=== PATIENT | female | born 1950 | race Asian ===

== ENCOUNTER 2016-03-13 09:14 | Emergency (ER) | payer OTHER, BC ==
[2016-03-13 09:20] VITALS: RESP 18; TEMP 97.5; O2SAT 95
--- NOTE | 2016-03-13 09:28 | CPEKG ---
Heart Rate: 60 RR Interval: 1000 P-R Interval: 176 QRSD Interval: 94 QT Interval: 428 QTC Interval: 428 P Orange: 61 QRS Orange: -2 T Wave Orange: -36 EKG Severity - ABNORMAL ECG - EKG Impression: SINUS RHYTHM Electronically Signed By: Mikie Álvarez 13-Mar-2016 14:54:06
--- NOTE | 2016-03-13 09:44 | EDPHY ---
H & P Stated Complaint: 4 days sob chest tightness/htn Time Seen by Provider: 03/13/16 09:23 HPI/ROS: CHIEF COMPLAINT: Intermittent chest pain and dyspnea HISTORY OF PRESENT ILLNESS: The patient presents to the emergency department with a 4 day history of intermittent chest pain and dyspnea. The patient is also complaining of associated carpal spasms in her hands, the patient reports a sensation that she cannot get a deep breath. The patient reportedly has been having hot flashing and sweating. Patient has a vague headache. The patient denies any fever, cough or congestion. The patient denies focal numbness or weakness. The patient does report some increasing stress secondary to her current work burden. The patient was seen in the emergency department approximately 3 years ago with similar symptoms. The patient does have a history of a negative stress echocardiogram within the past 4 years. The patient has no risk factors for coronary artery disease. The patient does also complain of some mild left eye pain. She reportedly is scheduled to undergo cataract surgery in the near future. REVIEW OF SYSTEMS: A comprehensive 10 point review of systems is otherwise negative aside from elements mentioned in the history of present illness. Source: Patient Exam Limitations: No limitations - Personal History Current Tetanus/Diphtheria Vaccine: Unsure - Medical/Surgical History Hx Asthma: No Hx Chronic Respiratory Disease: No Hx Diabetes: No Hx Cardiac Disease: Yes Hx Renal Disease: No Hx Cirrhosis: No Hx Alcoholism: No Hx HIV/AIDS: No Hx Splenectomy or Spleen Trauma: No Other PMH: MEDICAL- HTN, HLD, HYPOTHYROID, MIGRAINES, MITRAL VALVE PROLAPSE, SCOLIOSIS. SURGICAL- TMJ, TUBAL LIGATION - Social History Smoking Status: Former smoker - Physical Exam Exam: General Appearance: Alert, no distress Eyes: Pupils equal and round no pallor or injection ENT, Mouth: Mucous membranes moist Respiratory: There are no retractions, lungs are clear to auscultation Cardiovascular: Regular rate and rhythm Gastrointestinal: Abdomen is soft and nontender, no masses, bowel sounds normal Neurological: A&O, normal motor function, normal sensory exam, normal cranial nerves Skin: Warm and dry, no rashes Musculoskeletal: Neck is supple nontender Extremities: symmetrical, full range of motion Constitutional: Initial Vital Signs Temperature (C) 36.4 C 03/13/16 09:18 Heart Rate 66 03/13/16 09:18 Respiratory Rate 18 03/13/16 09:18 Blood Pressure 191/105 H 03/13/16 09:18 O2 Sat (%) 95 03/13/16 09:18 O2 Delivery Mode Room Air Allergies/Adverse Reactions: iodine Allergy (Verified 03/13/16 09:15) Home Medications: Medication Instructions Recorded Losartan Potassium 07/02/13 Medical Decision Making - Diagnostics Imaging: EKG: Complete interpretation has been separately recorded in the [employer] archive. Summary impression: Sinus rhythm, nonspecific T-wave changes unchanged from prior EKG in 2013. ED Course/Re-evaluation: The patient presents to the ED with a multitude of complaints. Regarding her left eye pain, intra-ocular eye pressures were measured to be 12. The patient is well-appearing. She is in no acute distress. The patient's EKG demonstrates no evidence of ischemia. Her TSH and troponin are normal. The patient has no risk factors for coronary artery disease. I do feel the patient's symptoms of dyspnea and palpitations carpal spasm are related to likely increasing stress at work. The patient can continue to follow up with her primary care provider for evaluation of the symptoms. I have referred the patient to our on-call room cleaner for further evaluation of her chronic cataracts. There is no evidence of an acute angle closure glaucoma in the ED. Differential Diagnosis: Differential diagnosis considered includes acute angle closure glaucoma, arrhythmia, anxiety, metabolic abnormality, thyrotoxicosis - Data Points Laboratory Results: Laboratory Results 03/13/16 09:31 03/13/16 09:31 03/13/16 09:31 WBC 5.84 10^3/uL (3.80-9.50) RBC 5.37 H 10^6/uL (4.18-5.33) Hgb 15.5 g/dL (12.6-16.3) Hct 46.7 % (38.0-47.0) MCV 87.0 fL (81.5-99.8) MCH 28.9 pg (27.9-34.1) MCHC 33.2 g/dL (32.4-36.7) RDW 12.9 % (11.5-15.2) Plt Count 295 10^3/uL (150-400) MPV 9.7 fL (8.7-11.7) Neut % (Auto) 51.2 % (39.3-74.2) Lymph % (Auto) 36.3 % (15.0-45.0) Murray % (Auto) 6.8 % (4.5-13.0) Eos % (Auto) 4.3 % (0.6-7.6) Baso % (Auto) 1.2 % (0.3-1.7) Nucleat RBC Rel Count 0.0 % (0.0-0.2) Absolute Neuts (auto) 2.99 10^3/uL (1.70-6.50) Absolute Lymphs (auto) 2.12 10^3/uL (1.00-3.00) Absolute Monos (auto) 0.40 10^3/uL (0.30-0.80) Absolute Eos (auto) 0.25 10^3/uL (0.03-0.40) Absolute Basos (auto) 0.07 10^3/uL (0.02-0.10) Absolute Nucleated RBC 0.00 10^3/uL (0-0.01) Immature Gran % 0.2 % (0.0-1.1) Immature Gran # 0.01 10^3/uL (0.00-0.10) Sodium 142 mEq/L (134-144) Potassium 4.2 mEq/L (3.5-5.2) Chloride 107 mEq/L (97-110) Carbon Dioxide 24 mEq/l (22-31) Anion Gap 11 mEq/L (8-16) BUN 14 mg/dL (7-23) Creatinine 0.6 mg/dL (0.6-1.0) Estimated GFR > 60 Glucose 156 H mg/dL (70-100) Calcium 9.0 mg/dL (8.5-10.4) Troponin I < 0.012 ng/mL (0-0.034) TSH 2.110 uIU/mL (0.465-4.680) Departure - Departure Disposition: Home, Routine, Self-Care Clinical Impression: Weakness Condition: Good Instructions: Weakness (ED) Additional Instructions: 1. You have been given the number of our on-call room cleaner Dr. Nelson Canales if you wish a 2nd opinion regarding your cataracts. 2. The testing done in the emergency department today demonstrates no evidence of a heart attack or obvious metabolic abnormality. There is no clinical evidence that you experience stroke. 3. Please return to the ED for markedly worsening symptoms or other concerns. 4. Please schedule a follow-up appointment with your primary care provider for a recheck in the next week. Referrals: Dandre Islas [Primary Care Provider] - As per Instructions
[2016-03-13 09:49] LABS: % IMMATURE GRANULYOCYTES 0.2 % (0.0-1.1); ABSOLUTE IMMATURE GRANULOCYTES 0.01 10^3/uL (0.00-0.10); ADD DIFF? NO; ADD MORPH? NO; ADD SCAN? NO; ATYPICAL LYMPHOCYTE FLAG 10 (0-99); FRAGMENT RBC FLAG 20 (0-99); HEMATOCRIT 46.7 % (38.0-47.0); HEMOGLOBIN 15.5 g/dL (12.6-16.3); LEFT SHIFT FLG 0 (0-99); LIPEMIA HEMOLYSIS FLAG 80 (0-99); MEAN CELL HEMOGLOBIN 28.9 pg (27.9-34.1); MEAN CELL HEMOGLOBIN CONCENTR. 33.2 g/dL (32.4-36.7); MEAN PLATELET VOLUME 9.7 fL (8.7-11.7); PLATELET CLUMPS FLAG 10 (0-99); PLATELET COUNT 295 10^3/uL (150-400); RED BLOOD CELL COUNT 5.37 10^6/uL (4.18-5.33); RED CELL DISTRIBUTION WIDTH 12.9 % (11.5-15.2)
[2016-03-13 09:53] LABS: ANION GAP 11 mEq/L (8-16); CARBON DIOXIDE 24 mEq/l (22-31); CHLORIDE 107 mEq/L (97-110); CREATININE 0.6 mg/dL (0.6-1.0); GLOMERULAR FILTRATION RATE > 60; GLUCOSE 156 mg/dL (70-100); POTASSIUM 4.2 mEq/L (3.5-5.2); SODIUM 142 mEq/L (134-144)
[2016-03-13 10:05] LABS: TROPONIN I < 0.012 ng/mL (0-0.034)
[2016-03-13 11:09] VITALS: BP 119/73; PULSE 61
== END 2016-03-13 11:09 | disposition home or self-care (01) ==
DX: R53.1 Weakness (principal); I10 Essential (primary) hypertension; Z87.891 Personal history of nicotine dependence

== ENCOUNTER → 2018-02-27 | Outpatient (CLI) | payer OTHER, BC | LOC: FIMAGING 11:57 | PROVIDERS: ATTEND Family Medicine | DX: R05 Cough (principal); J98.4 Other disorders of lung ==

== ENCOUNTER → 2018-03-19 | Outpatient (CLI) | payer OTHER, BC | LOC: FIMAGING 14:31 | PROVIDERS: ATTEND Neuromusculoskeletal Medicine & OMM | DX: M16.12 Unilateral primary osteoarthritis, left hip (principal); M17.12 Unilateral primary osteoarthritis, left knee ==

== ENCOUNTER → 2018-05-13 | Outpatient (CLI) | payer OTHER, BC | LOC: BHFA 13:15 | PROVIDERS: ATTEND Internal Medicine Cardiovascular Disease | DX: R06.02 Shortness of breath (principal); I10 Essential (primary) hypertension ==

== ENCOUNTER 2018-06-05 09:14 | Day surgery (SDC) | payer OTHER, BC ==
[2018-06-05] MEDS ORDERED: DIAZEPAM 5 MG TAB PO ONE (09:17)
[2018-06-05] MEDS ORDERED: NS 1,000 ML IV ONE (09:17)
[2018-06-05] MEDS ORDERED: ASPIRIN EC 325 MG TAB PO ONE (09:17)
[2018-06-05] MEDS ORDERED: FAMOTIDINE 20 MG/NACL 50 ML IV ONE (09:18)
[2018-06-05] MEDS ORDERED: methylPREDNISolone SOD SUCC 125 MG/2 ML VIAL IVP ONE (09:18)
[2018-06-05 09:57] LABS: PLATELET COUNT 307 10^3/uL (150-400)
[2018-06-05 10:07] LABS: INR 0.88 (0.83-1.16); PROTIME(PATIENT) 11.6 SEC (12.0-15.0)
[2018-06-05] MEDS ORDERED: LIDOCAINE 1% 300 MG/30 ML SDV ONE (10:37)
[2018-06-05] MEDS ORDERED: fentaNYL 100 MCG/2 ML INJ ONE (10:38)
[2018-06-05] MEDS ORDERED: IOPAMIDOL (ISOVUE-370) 150 ML BTL IV ONE (10:38)
[2018-06-05] MEDS ORDERED: HEPARIN 10,000 UNIT/10 ML MDV (1,000 UNIT/ML) ONE (10:38)
[2018-06-05] MEDS ORDERED: MIDAZOLAM 2 MG/2 ML VIAL ONE (10:38)
[2018-06-05] MEDS ORDERED: VERAPAMIL 5 MG/2 ML VIAL ONE (10:38)
--- NOTE | 2018-06-05 11:03 | PDHPUP ---
History & Physical Update H&P update statement: This history and physical update is based on an assessment of the patient which was completed after admission or registration (within 24 hours), but prior to the surgery/procedure. H&P update: H&P reviewed & patient examined, no change in patient's condition since H&P completed H&P changes: renal angiography as planned
--- NOTE | 2018-06-05 11:03 | PDPROPOC ---
Sedation Plan of Care Sedation Plan of Care: vital signs stable, mental status noted, patient educated of risks, benefits, alternatives, patient can tolerate sedation ASA Classification: ASA 2 Planned drugs: fentanyl, midazolam Mallampati Score: Class 3 Mallampati Reference Image: Patient passed 3-3-2 rule?: Yes
--- NOTE | 2018-06-05 11:52 | PDDXCAT ---
Diagnostic Cath Note - . 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 LAD: The left anterior descending 2.5mm in size. The vessel gives rise to a high principal diagonal branch. There is KIANA III flow. LCX: The left circumflex is 2.5mm in size. The vessel gives rise to an obtuse marginal branch. There is no evidence of flow limiting obstruction. RCA: The right coronary artery is 3mm in size and dominant. The vessel gives rise to a PDA branch. There is KIANA III flow throughout. EDP: 24mmHg Wall motion: On the LV gram there is normal LV systolic function. The EF is 65- 70%. There are no resting segmental wall motion abnormalities. The visualized portion of the thoracic aortic valve reveals three sinuses of valsalva most consistent with a trileaflet valve. There is 2+ mitral regurgitation and evidence of mild mitral valve prolapse with pressurized injection. There is no gradient on pullback across the aortic valve. There is no evidence of filiberto dissection or aneurysm formation of the thoracic aorta. The base of the anterior septum is thickened, which may be consistent with a hypertophic septum or a sigmoid shaped septum of the elderly. There is no outflow tract obstruction. - Findings-Right Heart Catheterization RA: ; SAT 84.2%; SVC 85.7% RV: PA: ; SAT 83.2% PAOP: AO: SAT 98% CO: 4.29 CI: 2.96 Complications: NONE Estimated blood loss: <50ml Closure method: TR Band Assessment: The patient does not have evidence of flow limiting coronary artery disease. There is no evidence of pulmonary hypertension or V waves on PAOP/(PCWP ) measurementThe LV gram revealed the base of the anterior septum is thickened, which may be consistent with a hypertophic septum or a sigmoid shaped septum of the elderly. On the renal angiogram there are luminal irregularies bilaterally , which are more prominent in the right renal artery. The irregularities may be consistent with renal atherosclerosis or fibromuscluar dysplasia; however, is not severe enough to warrant balloon angioplasty unless the patient's hypertension cannot be controlled with medication. The patient's blood pressure should be managed medically primarily with an TRISTON or ARB based regimen. Plan: The patient should be medically managed to control her blood pressure and keep it below 130/80 consistently. The patient will be a candidate for routine cardiovascular exercise once the wrist and brachial access sites have healed completely. The cholesterol should be managed to a level of an non HDL cholesterol of less than 100mg/dL. Intervention: NONE
[2018-06-05] MEDS ORDERED: ATROPINE SULFATE 1 MG/10 ML SYR IVP PRN (12:28)
[2018-06-05] MEDS ORDERED: ONDANSETRON 4 MG/2 ML VIAL IVP PRN (12:28)
[2018-06-05] MEDS ORDERED: HYDROCODONE/APAP 5/325 TAB PO PRN (12:28)
[2018-06-05] MEDS ORDERED: OXYCODONE/APAP 5/325 TAB PO PRN (12:28)
[2018-06-05] MEDS ORDERED: NITROGLYCERIN 0.4 MG BTL SL PRN (12:28)
[2018-06-05] MEDS ORDERED: ACETAMINOPHEN 325 MG TAB PO ONE (14:00)
--- NOTE | 2018-06-06 10:25 | CPEKG ---
Test Reason : OPEN Blood Pressure : / mmHG Vent. Rate : 058 BPM Atrial Rate : 059 BPM P-R Int : 202 ms QRS Dur : 101 ms QT Int : 410 ms P-R-T Axes : -05 013 -81 degrees QTc Int : 403 ms Sinus rhythm Probable left atrial enlargement Nonspecific repol abnormality, diffuse leads Confirmed by Domenic Cisneros ([id number]) on 06/06/2018 10:25:42 AM Referred By: Morro Palm Confirmed By:Domenic Cisneros
== END 2018-06-05 16:02 | disposition home or self-care (01) ==
LOC: FCATH 09:14
PROVIDERS: ATTEND Internal Medicine Cardiovascular Disease
PROC: B2151ZZ Fluoroscopy of Left Heart using Low Osmolar Contrast (ICD-10-PCS; principal; 2018-06-05)
PROC: B4181ZZ Fluoroscopy of Bilateral Renal Arteries using Low Osmolar Contrast (ICD-10-PCS; principal; 2018-06-05)
PROC: 4A023N8 Measurement of Cardiac Sampling and Pressure, Bilateral, Percutaneous Approach (ICD-10-PCS; principal; 2018-06-05)
PROC: B2111ZZ Fluoroscopy of Multiple Coronary Arteries using Low Osmolar Contrast (ICD-10-PCS; principal; 2018-06-05)
DX: R94.31 Abnormal electrocardiogram [ECG] [EKG] (principal); R06.02 Shortness of breath; R00.2 Palpitations; E78.00 Pure hypercholesterolemia, unspecified; I10 Essential (primary) hypertension
CPT/HCPCS: 93005; 93460; C1769; J1200; J1644; J2250; J2930; J3010; Q9967